=== PATIENT | female | born 1970 | race African-American/Black ===

== ENCOUNTER → 2020-12-06 | Outpatient (CLI) | payer OTHER ==
[~2020-12-06] MED LIST: ACID CONTROL150 MG; B Complex CAPSULE PO; CODE1TAB37 PO; LOVENOX40 MG/0.4 SUBCUTANEO; Mylicon 125MG PO; Neurin-Sl Tablet Sl SL; OMEPRAZOLE20 MG; PLAVIX75 MG; POLY119PG PO; TRAMADOL HCL-AP1 TAB PO; ULTRACET PO; VITAMIN B12-FO1 EACH; [UNRECOGNIZED DRUG - CODE] PO; [UNRECOGNIZED DRUG - OTHER] PO
== END | disposition home or self-care (01) ==
LOC: NUCLEAR 07:00
PROVIDERS: ATTEND Internal Medicine Cardiovascular Disease
DX: R07.89 Other chest pain (principal); I80.221 Phlebitis and thrombophlebitis of right popliteal vein; D68.61 Antiphospholipid syndrome; D50.0 Iron deficiency anemia secondary to blood loss (chronic); D70.8 Other neutropenia

== ENCOUNTER 2021-01-16 08:00 | Outpatient (CLI) | payer OTHER | END 2021-01-16 08:30 | disposition home or self-care (01) | LOC: PPH VACUNA 08:00 | PROVIDERS: ATTEND Emergency Medicine Pediatric Emergency Medicine | DX: Z23 Encounter for immunization (principal) ==

== ENCOUNTER 2024-06-08 07:31 | Outpatient (CLI) | payer OTHER | END 2024-06-08 07:38 | disposition home or self-care (01) | LOC: MAMO-SONO 07:31 | PROVIDERS: ATTEND Obstetrics & Gynecology | DX: N63 Unspecified lump in breast (principal); N64.59 Other signs and symptoms in breast; N64.9 Disorder of breast, unspecified ==

== ENCOUNTER 2024-11-02 10:10 | Outpatient (CLI) | payer OTHER ==
[2024-11-02 11:27] LABS: URINE APPEARANCE Clear; URINE BILIRRUBIN Negative (NEGATIVE); URINE BLOOD Negative; URINE COLOR Yellow; URINE KETONE Negative (NEGATIVE); URINE LEUKOCYTE Small; URINE NITRATE Negative; URINE PROTEIN Negative (NEGATIVE); URINE UROBILINOGEN 0.2 E.U./dl
[2024-11-02 11:31] LABS: URINE BACTERIA 2407.0 uL (0.0-1933); URINE CAST 0.29 uL (0.0-1.40); URINE EPITHELIAL CELLS 53.9 uL (0.0-38.8); URINE GLUCOSE >=1000 MG/DL (NEGATIVE); URINE RBC 19.3 uL (0.0-20.8); URINE WBC 86.1 uL (0.0-23.2)
== END 2024-11-02 10:15 | disposition home or self-care (01) ==
LOC: LAB 10:10
PROVIDERS: ATTEND Internal Medicine Gastroenterology
DX: R10.13 Epigastric pain (principal); N39.0 Urinary tract infection, site not specified

== ENCOUNTER 2024-11-02 10:17 | Outpatient (CLI) | payer OTHER | END 2024-11-02 10:18 | disposition home or self-care (01) | LOC: SONOGRAMA 10:17 | PROVIDERS: ATTEND Internal Medicine Gastroenterology | DX: R10.12 Left upper quadrant pain (principal) ==